=== PATIENT | male | born 1980 | race Two or more races ===

== ENCOUNTER 2024-12-14 16:33 | Emergency (ER) | payer OTHER ==
[~2024-12-14] VITALS: Ht 188 cm; Wt 113.4 kg
[2024-12-14 18:22] VITALS: BP 129/77; TEMP 97.9; O2SAT 96
== END 2024-12-14 18:23 | disposition home or self-care (01) ==
LOC: ER 16:37
DX: M25.512 Pain in left shoulder (principal); T50.995A Adverse effect of other drugs, medicaments and biological substances, initial encounter; F17.200 Nicotine dependence, unspecified, uncomplicated; R06.02 Shortness of breath; G89.29 Other chronic pain; Z60.2 Problems related to living alone; Y92.89 Other specified places as the place of occurrence of the external cause
CPT/HCPCS: 71045-TC